=== PATIENT | male | born 1975 ===

== ENCOUNTER → 2020-09-24 | Outpatient (CLI) | payer OTHER | LOC: LABNPT 06:22 | PROVIDERS: ATTEND Family Medicine | DX: Z53.9 Procedure and treatment not carried out, unspecified reason (principal) ==

== ENCOUNTER 2021-09-11 05:35 | Outpatient (CLI) | payer BC ==
[~2021-09-11] VITALS: Ht 177.8 cm; Wt 92.1 kg
== END 2021-09-12 13:01 | disposition home or self-care (01) ==
LOC: PREOP 05:35
PROVIDERS: ATTEND Surgery
DX: Z01.818 Encounter for other preprocedural examination (principal)